=== PATIENT | female | born 1940 | race Hispanic/Latino ===

== ENCOUNTER 2017-02-08 09:46 | Emergency (ER) | payer MEDICAID ==
[~2017-02-08 09:46] MED LIST changes: -ASPI-1181 PO; -ASPI-555 PO; -ATOR40TA69 PO; -ATOR40TA71 PO
[2017-02-08 10:52] LABS: APPEARANCE,URINE Cloudy (CLEAR); BILIRUBIN,URINE Negative (NEGATIVE); COLOR,URINE Yellow (YELLOW); GLUCOSE, URINE (UA) Negative (NEGATIVE); KETONES,URINE Negative (NEGATIVE); LEUKOCYTE ESTERASE ,URINE Large (NEGATIVE); NITRATE,URINE Negative (NEGATIVE); OCCULT BLOOD,URINE Moderate (NEGATIVE); PROTEIN,URINE Negative (NEGATIVE); UROBILINOGEN,URINE 0.2 mg/dL (0.2-1.0)
[2017-02-08 10:58] LABS: RBC,URINE 0-1 /HPF (0-1); WBC,URINE TNTC /HPF (0-1)
[2017-02-08 10:59] LABS: BACTERIA,URINE Rare /HPF (None Seen); SQUAMOUS EPITHELIAL CELL,UR Rare /LPF (0-2)
[2017-02-08] MEDS ORDERED: LIDOCAINE HCL-MPF 1% 2ML VIAL ONE (11:41)
[2017-02-08] MEDS ORDERED: CEFTRIAXONE SODIUM 1 GM ONE (11:42)
[2017-02-08] MEDS ORDERED: PHENAZOPYRIDINE HCL 200 MG TABLET ONE (11:42)
[2017-02-25] MEDS ORDERED: ASPI-1181 PO (14:03)
[2017-02-25] MEDS ORDERED: ATOR40TA71 PO (14:03)
== END 2017-02-08 12:06 | disposition home or self-care (01) ==
LOC: EDH 09:46
DX: N39.0 Urinary tract infection, site not specified (principal); E78.5 Hyperlipidemia, unspecified; Z90.710 Acquired absence of both cervix and uterus
CPT/HCPCS: 81001; 87088; 87186; 93005; 96372; 99284; J0696; J3490

== ENCOUNTER → 2017-02-08 | Outpatient (CLI) | payer MEDICAID ==
[~2017-02-08] MED LIST: ACET1TAB12 PO; ASPI-1181 PO; ASPI-555 PO; ATOR40TA69 PO; ATOR40TA71 PO; NITR100C4 PO
== END | disposition home or self-care (01) ==
LOC: LAB 08:44
PROVIDERS: ATTEND Family Medicine
DX: E78.5 Hyperlipidemia, unspecified (principal)
CPT/HCPCS: 93005

== ENCOUNTER → 2017-02-18 | Outpatient (CLI) | payer MEDICAID ==
[~2017-02-18] MED LIST changes: +ASPI-1181 PO; +ASPI-555 PO; +ATOR40TA69 PO; +ATOR40TA71 PO
== END | disposition home or self-care (01) ==
LOC: SHCH 08:29
PROVIDERS: ATTEND Internal Medicine Cardiovascular Disease
DX: R09.89 Other specified symptoms and signs involving the circulatory and respiratory systems (principal)
CPT/HCPCS: 93880

== ENCOUNTER → 2017-02-19 | Outpatient (CLI) | payer MEDICAID | END | disposition home or self-care (01) | LOC: SHCH 13:42 | PROVIDERS: ATTEND Internal Medicine Cardiovascular Disease | DX: I34.8 Other nonrheumatic mitral valve disorders (principal) | CPT/HCPCS: 93306 ==

== ENCOUNTER 2017-02-26 06:43 | Day surgery (SDC) | payer MEDICAID ==
[2017-02-25 14:07] LABS: BASOPHILS % (AUTO) 0.7 % (0.0-5.0); EOSINOPHILS % (AUTO) 0.9 % (0.0-8.0); HEMATOCRIT 40.7 % (36-48); LYMPHOCYTES % (AUTO) 26.6 % (21.0-51.0); MEAN CORPUSCULAR HEMOGLOBIN 31.6 pg (27.0-33.0); MEAN CORPUSCULAR HGB CONC 33.8 g/dL (32.0-36.0); MEAN CORPUSCULAR VOLUME 93.4 fL (79-99); MONOCYTES % (AUTO) 4.7 % (3.0-13.0); NEUTROPHILS % (AUTO) 67.1 % (40.0-77.0); PLATELET COUNT (AUTO) 269 K/uL (130-400); RED BLOOD CELL COUNT(AUTO) 4.36 MIL/uL (4.00-5.50); RED CELL DISTRIBUTION WIDTH 12.1 % (11.0-15.5); WHITE BLOOD COUNT (AUTO) 6.4 K/uL (4.8-10.8)
[2017-02-25 14:19] VITALS: BP 138/68
[2017-02-25 14:25] LABS: CREATININE 0.7 mg/dL (0.5-1.5)
[2017-02-26] VITALS (16 sets, daily range): BP systolic 126–174; BP diastolic 66–82
[~2017-02-26] VITALS: Ht 170.2 cm; Wt 80.7 kg
[~2017-02-26 06:43] MED LIST changes: -ASPI-555 PO; -ATOR40TA69 PO; +CEFAZOLIN SODIUM 1 GM VIAL IVP SCH; +LACTATED RINGERS 1000ML 1,000 ML IV SCH
[2017-02-26] MEDS ORDERED: ASPI-555 PO (08:01)
[2017-02-26] MEDS ORDERED: ATOR40TA69 PO (08:01)
[2017-02-26] MEDS ORDERED: ROCURONIUM BROMIDE 10MG/1ML 5ML VL ONE ×2 (08:17→08:57)
[2017-02-26] MEDS ORDERED: LIDOCAINE PF 2% 5ML ABBOJECT ONE (08:17)
[2017-02-26] MEDS ORDERED: SUCCINYLCHOLINE 200MG/10ML SYR ONE (08:17)
[2017-02-26] MEDS ORDERED: PROPOFOL 10 MG/ML 20ML VIAL IV ONE ×2 (08:17→09:41)
[2017-02-26] MEDS ORDERED: ONDANSETRON HCL 4 MG/2 ML VIAL ONE (08:17)
[2017-02-26] MEDS ORDERED: MIDAZOLAM HCL 1 MG/ML 2ML VIAL ONE (08:17)
[2017-02-26] MEDS ORDERED: GLYCOPYRROLATE 0.2 MG/ML 5 ML VIAL ONE (08:17)
[2017-02-26] MEDS ORDERED: DEXAMETHASONE SOD PHOSPHATE 10MG/ML 1ML VIAL ONE (08:17)
[2017-02-26] MEDS ORDERED: FENTANYL CITRATE PF 50 MCG/1 ML 5ML AMP IV ONE (08:18)
[2017-02-26] MEDS ORDERED: NEOSTIGMINE 5MG/5ML SYR IV ONE (08:58)
[2017-02-26] MEDS ORDERED: NALOXONE HCL 0.4 MG/1 ML ML ONE (09:25)
== END 2017-02-26 11:55 | disposition home or self-care (01) ==
LOC: DAH 06:43 → SUH 06:43
PROVIDERS: ATTEND Obstetrics & Gynecology
DX: R30.0 Dysuria (principal); R10.2 Pelvic and perineal pain; E78.5 Hyperlipidemia, unspecified; M81.0 Age-related osteoporosis without current pathological fracture; Z90.710 Acquired absence of both cervix and uterus; Z87.440 Personal history of urinary (tract) infections
CPT/HCPCS: 36415; 57287; 80048; 85025; 86850; 86900; 86901; 88300; A4351; A4510; A4600; A4606; J0330; J1100; J2001; J2250; J2310; J2405; J2704 ×2; J2710; J3010; J3490 ×3; J7120

== ENCOUNTER → 2023-05-08 | Outpatient (CLI) | payer MEDICARE ==
[~2023-05-08] MED LIST changes: -ACET1TAB12 PO; -ASPI-1181 PO; +ASPI-1443 PO; +ASPI-556 PO; +ATOR40TA69 PO; -CEFAZOLIN SODIUM 1 GM VIAL IVP SCH; -LACTATED RINGERS 1000ML 1,000 ML IV SCH; -NITR100C4 PO
== END | disposition home or self-care (01) ==
LOC: RAH 09:14
PROVIDERS: ATTEND Family Medicine Adult Medicine
DX: Z12.31 Encounter for screening mammogram for malignant neoplasm of breast (principal); R92.323 Mammographic fibroglandular density, bilateral breasts
CPT/HCPCS: 77067

== ENCOUNTER → 2023-06-26 | Outpatient (CLI) | payer MEDICARE | END | disposition home or self-care (01) | LOC: RAH 10:00 | PROVIDERS: ATTEND Family Medicine Adult Medicine | DX: N64.4 Mastodynia (principal) ==

== ENCOUNTER 2023-07-15 07:32 | Day surgery (SDC) | payer MEDICARE ==
[2023-07-11 11:04] LABS: BASOPHILS # (AUTO) 0.04 K/uL (0.00-0.20); BASOPHILS % (AUTO) 0.6 % (0.0-5.0); EOSINOPHILS # (AUTO) 0.14 K/uL (0.00-0.70); HEMATOCRIT 44.3 % (36-48); IMMATURE GRANULOCYTE ABSOLUTE 0.01 K/uL (0-1); LYMPHOCYTES # (AUTO) 1.8 K/uL (1.0-4.8); LYMPHOCYTES % (AUTO) 25.7 % (21.0-51.0); MEAN CORPUSCULAR HEMOGLOBIN 31.6 pg (27.0-33.0); MEAN CORPUSCULAR HGB CONC 32.5 g/dL (32.0-36.0); MEAN CORPUSCULAR VOLUME 97.1 fL (79-99); MONOCYTES # (AUTO) 0.5 K/uL (0.1-1.0); MONOCYTES % (AUTO) 6.5 % (3.0-13.0); NEUTROPHILS # (AUTO) 4.6 K/uL (1.8-7.7); NEUTROPHILS % (AUTO) 65.1 % (40.0-77.0); PLATELET COUNT (AUTO) 223 K/uL (130-400); RED BLOOD CELL COUNT(AUTO) 4.56 MIL/uL (4.00-5.50); RED CELL DISTRIBUTION WIDTH 11.8 % (11.0-15.5); WHITE BLOOD COUNT (AUTO) 7.1 K/uL (4.8-10.8)
[2023-07-11 11:21] LABS: CREATININE 0.8 mg/dL (0.5-1.0); POTASSIUM 4.3 mmol/L (3.5-5.1)
[2023-07-11 11:38] VITALS: BP 146/77; PULSE 67; RESP 16
[~2023-07-15] VITALS: Ht 167.6 cm; Wt 83.9 kg
[2023-07-15] VITALS (14 sets, daily range): BP systolic 124–157; BP diastolic 56–94; PULSE 56–72; RESP 13–18
[~2023-07-15 07:32] MED LIST changes: -ASPI-1443 PO; -ATOR40TA71 PO; +CLOP75TA32 PO; +EZET10TA48 PO; +VALS160T29 PO; +VITAMIN B12 PO; +[UNRECOGNIZED DRUG - OTHER] PO
[2023-07-15] MEDS: CEFAZOLIN SODIUM 2 GM VIAL ONE (08:10)
[2023-07-15] MEDS: LACTATED RINGERS 1000ML 1,000 ML IV ONE (08:15)
[2023-07-15] MEDS ORDERED: FAMOTIDINE 20MG VIAL IV ONE (09:48)
[2023-07-15] MEDS ORDERED: ACETAMINOPHEN 1,000 MG/100 ML VIAL IV ONE (09:48)
[2023-07-15] MEDS ORDERED: PROPOFOL 10 MG/ML 20ML VIAL IV ONE (09:50)
[2023-07-15] MEDS ORDERED: ROCURONIUM BROMIDE 10MG/1ML 5ML VL ONE (09:50)
[2023-07-15] MEDS ORDERED: FENTANYL CITRATE PF 50 MCG/1 ML 2ML VIAL ONE (09:50)
[2023-07-15] MEDS ORDERED: LIDOCAINE PF 100MG/5ML (2%) SYRINGE 5ML ONE (09:50)
[2023-07-15] MEDS ORDERED: BUPIVACAINE/PF 0.25% 30ML VIAL IJ ONE (09:57)
[2023-07-15] MEDS ORDERED: ONDANSETRON 4MG INJ ONE (10:11)
[2023-07-15] MEDS ORDERED: DEXAMETHASONE SOD PHOSPHATE 10MG/ML 1ML VIAL ONE (10:11)
[2023-07-15] MEDS: CEFAZOLIN SODIUM 2 GM VIAL IVPB ONE (10:18)
[2023-07-15] MEDS ORDERED: PHENYLEPHRINE HCL 10 MG/ML 1ML VIAL IV ONE (10:32)
[2023-07-15] MEDS ORDERED: GLYCOPYRROLATE 0.2 MG/ML 5 ML VIAL ONE (10:37)
[2023-07-15] MEDS ORDERED: NEOSTIGMINE METHYLSULFATE 1MG/ML IV ONE (10:37)
[2023-07-15] MEDS ORDERED: SUGAMMADEX SODIUM 200 MG/2 ML VIAL IV ONE (10:56)
== END 2023-07-15 12:40 | disposition home or self-care (01) ==
LOC: DAH 07:32
PROVIDERS: ATTEND Surgery
DX: L72.0 Epidermal cyst (principal); I10 Essential (primary) hypertension; Z82.49 Family history of ischemic heart disease and other diseases of the circulatory system; Z83.3 Family history of diabetes mellitus; Z80.9 Family history of malignant neoplasm, unspecified; Z87.891 Personal history of nicotine dependence; Z79.82 Long term (current) use of aspirin; Z79.899 Other long term (current) drug therapy; Z98.49 Cataract extraction status, unspecified eye; Z90.710 Acquired absence of both cervix and uterus; Z98.890 Other specified postprocedural states
CPT/HCPCS: 93005; 80048; 85025; 36415; 11403; 88304; A6260; J0665 ×2; A4663; J7030; A4452; J7120; J3490 ×3; J3010; J1100; J2001; J2704; J2405; J2710; J2371; J0690 ×2; A4215; A4223; A4213; A4222; A4221

== ENCOUNTER 2024-09-17 09:53 | Day surgery (SDC) | payer OTHER, MEDICAID ==
[2024-09-15 13:30] VITALS: BP 129/54; PULSE 75; RESP 15; TEMP 97.2
[2024-09-15 13:30] LABS: IMMATURE GRANULOCYTE ABSOLUTE 0.01 K/uL (0-1); NUCLEATED RED BLOOD CELLS 0.0 % (0.0-0.19); PLATELET COUNT (AUTO) 240 K/uL (130-400); RED BLOOD CELL COUNT(AUTO) 4.47 MIL/uL (4.00-5.50); RED CELL DISTRIBUTION WIDTH 11.9 % (11.0-15.5); WHITE BLOOD COUNT (AUTO) 6.1 K/uL (4.8-10.8)
[2024-09-15 13:33] LABS: APPEARANCE,URINE CLEAR (CLEAR); GLUCOSE, URINE (UA) NEGATIVE (NEGATIVE); LEUKOCYTE ESTERASE ,URINE NEGATIVE Leu/uL (NEGATIVE); NITRATE,URINE NEGATIVE (NEGATIVE); OCCULT BLOOD,URINE NEGATIVE (NEGATIVE)
[2024-09-15 13:35] LABS: ADD UA MICROSCOPIC NO
[2024-09-15 13:37] LABS: CREATININE 0.7 mg/dL (0.5-1.0); GLOMERULAR FILTR. RATE CALC 86.0 mL/min (>90); GLUCOSE,RANDOM 95.0 mg/dL (70-105); SODIUM SERUM 145.0 mmol/L (136-145); UREA NITROGEN, BLOOD 14.0 mg/dL (7-18)
--- NOTE | 2024-09-15 13:45 | EKG ---
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
[2024-09-15 13:50] LABS: INR 1.02 (0.85-1.15)
--- NOTE | 2024-09-15 17:35 | HMCIMG ---
EXAM: CR CHEST, 1 VIEW CLINICAL HISTORY: 84-year-old female pre-op. COMPARISON: None provided TECHNIQUE: Single frontal radiograph of the chest was obtained. FINDINGS: Lines/Devices: None. Lungs: Radiographically clear. No consolidation or ground-glass opacities are observed. There is no pleural effusion. There is no pneumothorax. Mediastinum and cardiovascular structures: There are calcific atherosclerotic plaques in the aorta. The cardiac silhouette is not enlarged. The central airway and mediastinal contours are unremarkable. Bones and soft tissues: Unremarkable. IMPRESSION: 1. No acute cardiopulmonary pathology. 2. Atherosclerotic aorta. /[place]
[~2024-09-17] VITALS: Ht 167.6 cm; Wt 81.9 kg
[2024-09-17] VITALS (10 sets, daily range): BP systolic 101–144; BP diastolic 48–65; PULSE 55–77; RESP 14–18; TEMP 97.4–97.9
[~2024-09-17 09:53] MED LIST changes: +0.9%NACL 1000ML 1,000 ML IV SCH; +ACET-3859 PO; -ASPI-556 PO; +CILO100T3 PO; +GABA-529 PO; +OMEG100033 PO; +VITA-395 PO; -VITAMIN B12 PO; -[UNRECOGNIZED DRUG - OTHER] PO
[2024-09-17] MEDS ORDERED: LIDOCAINE HCL 400MG/20ML VIAL ONE (14:17)
[2024-09-17] MEDS ORDERED: IODIXANOL 320 MG/ML 100 ML VIAL ONE (14:17)
[2024-09-17] MEDS ORDERED: HEParin-NS 1,000 UNIT/500 ML 1,000 ML IV ONE (14:17)
[2024-09-17] MEDS ORDERED: MIDAZOLAM HCL 1 MG/ML 2ML VIAL ONE (14:35)
[2024-09-17] MEDS ORDERED: NITROGLYCERIN 50MG VIAL ONE (14:40)
[2024-09-17] MEDS ORDERED: DEXTROSE 50%-WATER 50 ML DISP.SYRIN IV PRN (16:30)
[2024-09-17] MEDS ORDERED: GLUCAGON 1MG KIT 1 MG ML IM PRN (16:30)
[2024-09-17] MEDS ORDERED: 0.9%NACL 1000ML 1,000 ML IV SCH (16:30)
--- NOTE | 2024-09-17 16:45 | PRN ---
Procedure:Peripheral Angiogram Procedure Note Procedure Note: Peripheral Angiogram Date/Time of Service: 09/17/2024 Referring Physician: Dr. Nunn Procedures Performed: Lower abdominal aortogram, peripheral angiogram with bilateral lower extremity arterial runoff Indications for Procedure: PAD, Willacy category three symptoms (L > R) Description of Procedure: [After informed consent was obtained the patient was prepped and draped in the usual sterile fashion a 6 Bulgarian arterial sheath with a hemostatic valve was inserted into the right common femoral artery using a modified Salinger technique on the first past front wall puncture. A 5 Bulgarian Omni Flush catheter was then advanced over a soft angled Glidewire into the abdominal aorta and a lower abdominal aortogram with runoff was obtained. The findings are listed below. The Omni flush catheter was then advanced to the left common femoral artery and a left lower extremity arteriogram was obtained. The findings are listed below.] Findings: Lower abdominal aorta: patent Right common iliac artery: 20% stenosis in the ostial segment of the artery Right external iliac artery: patent Right internal iliac artery: patent Right common femoral artery: patent Right profunda artery: patent Right superficial femoral artery: Diffuse 80% stenosis in the proximal segment of the artery. 100% stenosis (DIRECT CARE STAFFER = 40 mm) in the mid segment of the artery. The artery reconstitutes distally via collateral blood flow. There is diffuse 80% stenosis in the distal segment of the artery Right popliteal artery: patent Right anterior tibial artery: 90% stenosis in the proximal segment of the artery Right tibioperoneal artery: patent Right peroneal artery: patent Right posterior tibial artery: 100% stenosis (DIRECT CARE STAFFER > 200 mm) in the proximal segment of the artery. The artery reconstitutes distally near the ankle. Right pedal arch: Incomplete, with slow two-vessel runoff supplying the anterior and posterior segments of the right pedal arch. Left common iliac artery: 30% stenosis in the ostial segment of the artery Left external iliac artery: patent Left internal iliac artery: patent Left common femoral artery: patent Left profunda artery: patent Left superficial femoral artery: There is a stent present in the proximal segment of the artery. There was 30% ISR seen within the stent. There was 100% stenosis (DIRECT CARE STAFFER = 250 mm) in the mid segment of the artery. The DIRECT CARE STAFFER extends into the distal left popliteal artery Left popliteal artery: The artery reconstitutes in his distal segment via collateral blood flow. Left anterior tibial artery: 100% stenosis (DIRECT CARE STAFFER = 200 mm) in the proximal segment of the artery. The artery reconstitutes distally via collateral blood flow Left tibioperoneal artery: patent Left peroneal artery: patent Left posterior tibial artery: There was diffuse 90% stenosis in the proximal and mid segments of the artery. Left pedal arch: Incomplete, with slow two-vessel runoff supplying the anterior and posterior segments of the left pedal arch. Intervention: None Estimated Blood Loss: [20]mL Complications: [ None] Conclusion: 1. PAD, Darshan category 3 symptoms (L> R), 100% stenosis (DIRECT CARE STAFFER = 250 mm) in the mid left superficial femoral artery, 100% stenosis (DIRECT CARE STAFFER = 200 mm) in the proximal left anterior tibial artery, diffuse 90% stenosis in the proximal and mid left posterior tibial artery, 80% stenosis in the proximal right superficial femoral artery, 100% stenosis (DIRECT CARE STAFFER = 40 mm) in the mid right superficial femoral artery, 90% stenosis in the proximal right anterior tibial artery, 100% stenosis (DIRECT CARE STAFFER > 200 mm) in the proximal right posterior tibial artery 2. 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 Continue goal-directed medical therapy. 2. Continue cilostazol 100 mg BID and clopidogrel 75 mg daily. 3. Groin precautions 4. 4 hours of bedrest 5. Start NS at 100 mL/hour x3 hours. 6. Okay to DC, once bed restless complete in the right groin is soft, and free of bruising, bleeding, and or hematoma formation. 7. No driving for the next 48 hours. 8. No heavy lifting or strenuous exercise for the next two weeks. 9. We will refer the patient for treatment options, including left-sided femoral/popliteal bypass surgery as an outpatient. CHARLENE NUNN MD Sep 17, 2024 16:45
== END 2024-09-17 20:15 | disposition home or self-care (01) ==
LOC: DAH 09:53
PROVIDERS: ATTEND Internal Medicine Cardiovascular Disease
DX: I70.203 Unspecified atherosclerosis of native arteries of extremities, bilateral legs (principal); I70.92 Chronic total occlusion of artery of the extremities; I10 Essential (primary) hypertension; E78.5 Hyperlipidemia, unspecified; R01.1 Cardiac murmur, unspecified; Z79.82 Long term (current) use of aspirin; Z79.01 Long term (current) use of anticoagulants; Z79.899 Other long term (current) drug therapy
CPT/HCPCS: 80048; 83880; 85025; 85610; 85730; 81003; 36415; 71045; 93005; 75625; 36246; 75716; 99156; 99157 ×3; C1894 ×2; C1760; C1769; J3010; J3490 ×3; J0360; J2250; J1644; Q9967; A4215; A4222; A4221; A4663; A4216; A4606; A4223 ×3

== ENCOUNTER 2024-11-26 14:44 | Emergency (ER) | payer OTHER, MEDICAID ==
[~2024-11-26] VITALS: Ht 167.6 cm; Wt 81.2 kg
[~2024-11-26 14:44] MED LIST changes: -0.9%NACL 1000ML 1,000 ML IV SCH; -EZET10TA48 PO; +EZET10TA80 PO
--- NOTE | 2024-11-26 15:03 | ERN ---
General Chief Complaint: Lower Extremity Pain/Injury Stated Complaint: LEFT LEG EDEMA Time Seen by MD: 14:46 Source: patient History of Present Illness Initial Comments Patient is a 84-year-old female coming in to be evaluated for left leg pain. Per patient she was evaluated by arboriculture instructor and sent in for further imaging. Patient recently has a stent placed on the 8th facility outlet with a valley. Allergies: Coded Allergies: No Known Drug Allergies (Unverified Allergy, Unknown, 07/30/16) Home Meds Reported Medications Gabapentin (Gabapentin) 100 Mg Capsule, 300 MG PO PM, CAP 09/15/24 Acetaminophen (Acetaminophen) 325 Mg Tablet, 325 MG PO AD, TAB 09/15/24 Cilostazol (Cilostazol) 100 Mg Tablet, 100 MG PO BID, TAB 09/15/24 [place]-3/Dha/Epa/Fish Oil (Fish Oil 1,000 mg Softgel) 1,000 Mg (120 Mg-180 Mg) Capsule, 1000 MG PO AM, CAP 09/15/24 Vitamin E (Dl,Tocopheryl Acet) (Vitamin E) 180 Mg (400 Unit) Capsule, 180 MG PO AM, CAP 09/15/24 Clopidogrel Bisulfate (Clopidogrel) 75 Mg Tablet, 75 MG PO AM, TAB 07/11/23 Valsartan (Valsartan) 160 Mg Tablet, 160 MG PO HS, TAB 07/11/23 Ezetimibe (Ezetimibe) 10 Mg Tablet, 10 MG PO HS, TAB 07/11/23 Atorvastatin Calcium (LIPITOR) 40 Mg Tablet, 40 MG PO HS, TAB 02/26/17 Past Medical History Past Medical History: High Cholesterol, Heart Disease, Hypertension, Other Medical History Other: pad Past Surgical History: Other Surgical History Other: stent left lower leg ROS Dictation CONSTITUTIONAL: No chills, no fever, no weakness, no diaphoresis, no malaise. HEAD/FACE: No signs of trauma. EENT: No eye pain, no blurred vision, no tearing, no double vision, no ear pain, no ear discharge, no nose pain, no nasal congestion, no throat pain, no throat swelling, no mouth pain. RESPIRATORY: No cough, no orthopnea, no SOB, no stridor, no wheezing. CARDIOVASCULAR: No chest pain, no edema, no palpitations, no syncope. GASTROINTESTINAL/ABDOMINAL: No abdominal pain, no constipation, no diarrhea, no nausea, no vomiting. GENITOURINARY: No abnormal discharge, no dysuria, no frequent urination, no hematuria. No complaints of pain in the genitals. MUSCULOSKELETAL: No back pain, no gout, no joint pain, no joint swelling, no muscle pain, no muscle stiffness, no neck pain. INTEGUMENTARY: change in color, no change in hair/nails, no dryness, no lesion, no lumps, no rash. NEUROLOGICAL/PSYCH: No anxiety, not depressed, no emotional problem, no headache, no numbness, no pre-existing deficit, no history of seizures, no tremors, no weakness. HEMATOLOGIC/LYMPHATIC: Not anemic, no history of blood clots, no apparent bleeding, no bruising, glands not swollen. All Systems Negative, Except as Noted. Physical Exam Physical Exam Dictation VITAL SIGNS: Reviewed. GENERAL APPEARANCE: Alert, oriented x3, no acute distress, obese. HEAD AND FACE: Non-traumatic. EYES: PERRL, pink conjunctivas, eyelid no trauma, anterior chamber clear. EARS: Pinnas intact and no signs of trauma or erythema. Ear canals clear and no discharge. TMs no erythema. NOSE: No discharge, no bleeding. OROPHARYNX: Mouth normal, teeth no caries, tongue pink. Pharynx clear, no erythema. Tonsils no exudates, no abscesses noted. Mucous membrane moist. NECK: Supple, non-tender, no thyromegaly, no masses, no JVD, no bruits. BREAST: Deferred. CHEST: No tenderness, no crepitus, no paradoxical movement, no retractions. LUNGS: Clear, well-ventilated, symmetric, no rales, no wheezing, no rhonchi, no stridor, good breath sounds bilaterally. HEART: Regular rate, regular rhythm, no murmur, no gallops. VASCULAR: No peripheral edema. ABDOMEN: Soft, positive bowel sounds, nondistended, no guarding, nontender, no rebound, no masses no hepatomegaly, no splenomegaly, no Adan's sign, no hernias. RECTAL: Deferred. GENITAL: Deferred. NEUROLOGICAL: Normal speech, gross motor function intact, gross sensory function intact. MUSCULOSKELETAL: Neck nontender, full range of motion, back nontender, full range of motion. EXTREMITIES: Nontender, full range of motion. SKIN: Color pink, dry, no turgor, no rash, no lacerations, no abrasions, no contusions. LYMPHATICS: Deferred. Results Laboratory and Microbiology Lab and Micro Result Laboratory Tests Test 11/26/24 16:06 White Blood Count 7.1 K/uL (4.8-10.8) Red Blood Count 4.12 MIL/uL (4.00-5.50) Hemoglobin 12.8 g/dL (12.0-16.0) Hematocrit 40.9 % (36-48) Mean Corpuscular Volume 99.3 fL (79-99) H Mean Corpuscular Hemoglobin 31.1 pg (27.0-33.0) Mean Corpuscular Hemoglobin Concent 31.3 g/dL (32.0-36.0) L Red Cell Distribution Width 11.9 % (11.0-15.5) Platelet Count 257 K/uL (130-400) Mean Platelet Volume 9.4 fL (7.5-10.5) Immature Granulocyte % (Auto) 0.3 % (0-1) Neutrophils (%) (Auto) 70.4 % (40.0-77.0) Lymphocytes (%) (Auto) 20.1 % (21.0-51.0) L Monocytes (%) (Auto) 7.5 % (3.0-13.0) Eosinophils (%) (Auto) 1.4 % (0.0-8.0) Basophils (%) (Auto) 0.3 % (0.0-5.0) Neutrophils # (Auto) 5.0 K/uL (1.8-7.7) Lymphocytes # (Auto) 1.4 K/uL (1.0-4.8) Monocytes # (Auto) 0.5 K/uL (0.1-1.0) Eosinophils # (Auto) 0.10 K/uL (0.00-0.70) Basophils # (Auto) 0.02 K/uL (0.00-0.20) Absolute Immature Granulocyte (auto 0.02 K/uL (0-1) Nucleated Red Blood Cells 0.0 % (0.0-0.19) Sodium Level 145 mmol/L (136-145) Potassium Level 4.1 mmol/L (3.5-5.1) Chloride Level 104 mmol/L (101-111) Carbon Dioxide Level 33 mmol/L (21-32) H Blood Urea Nitrogen 26 mg/dL (7-18) H Creatinine 0.8 mg/dL (0.5-1.0) Glomerular Filtration Rate Calc 74 mL/min (>90) Random Glucose 124 mg/dL (70-105) H Total Calcium 9.3 mg/dL (8.5-10.1) Troponin I High Sensitivity 6 ng/L (4-50) Labs Reviewed?: Yes EKG/XRAY/US/CT/MRI EKG Comment 11/26/2024 time 15:53 vent rate 82 sinus rhythm pr [address] wave elevation or depression Ultrasound Comment venous us- negative dvt arterial us- arteriosclerosis MDM MDM: Differential diagnosis: Rationale: Tests considered and ordered secondary to shared decision making include: labs, ECG and radiology Previous outside records reviewed: Old ER visits. Risk of complication and/or morbidity or mortality of patient management: None Medications-Per medication reconciliation Need for hospitalization: Patient does meet criteria for hospitalization. Need for emergency major/minor surgery: No There are no social concerns with this patient. Prescription drug management Prescriptions will include symptomatic care Patient's prior external medical records from other ER visits were reviewed by me as indicated. Prior testing and results from previous visits were reviewed. Prior tests were taken into account with medical decision making and resource utilization, independent historian/historians were used to obtain complete medical history. I independently interpreted the test that were performed, results were reviewed by me and considered findings on radiology if ordered. Medical management and examination interpretation discussions were had by me with other qualified healthcare professionals as indicated for the patient's care. ED Course Orders Procedure Category Date Status Time Cbc With Differential LAB 11/26/24 Complete 15:03 Chest 1vw RAD 11/26/24 Taken 15:03 12 Lead Ekg Tracing- EKG 11/26/24 Resulted Technical 15:03 Troponin I High LAB 11/26/24 Complete Sensitivity 15:03 Urinalysis Profile LAB 11/26/24 Logged 15:03 Basic Metabolic Panel LAB 11/26/24 Complete 15:03 Us Venous Doppler US 11/26/24 Taken Unilateral 15:03 Us Arterial Unila Low US 11/26/24 Taken Ext Dupl 15:03 Acetaminophen 500mg PHA 11/26/24 In Process Tab (Tylenol 500mg T 18:30 Acetaminophen 500mg PHA 10/16/25 Complete Tab (Tylenol 500mg T 18:21 Current Medications Medications (Trade) Dose Ordered Sig/Kamlesh Route PRN Reason Start Time Stop Time Status Last Admin Dose Admin Acetaminophen (TYLenol 500MG TAB) 500 mg STK-MED ONCE .ROUTE 11/26/24 18:21 11/26/24 18:21 DC Acetaminophen (TYLenol 500MG TAB) 1,000 mg ONCE PO 11/26/24 18:30 11/26/24 22:30 11/26/24 18:29 Vital Signs Date Time Temp Pulse Resp B/P (MAP) Pulse Ox O2 Delivery O2 Flow Rate FiO2 11/26/24 18:40 98.2 77 15 127/77 98 Room Air* 0 21 11/26/24 18:30 98.1 11/26/24 14:53 98.1 83 16 133/54 96 Room Air* 0 21 11/26/24 14:46 98.1 83 16 133/54 96 Room Air 0 DX & DISP Disposition: Other(Comment) (Patient care transitioned to Dr. Gonzales) Departure Condition: Stable Referrals: WINSOME HERNNADEZ (PCP) RAMOS NICKERSON MD Nov 26, 2024 15:03
--- NOTE | 2024-11-26 15:58 | EKG ---
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
[2024-11-26 16:13] LABS: IMMATURE GRANULOCYTE ABSOLUTE 0.02 K/uL (0-1); NUCLEATED RED BLOOD CELLS 0.0 % (0.0-0.19); PLATELET COUNT (AUTO) 257 K/uL (130-400); RED BLOOD CELL COUNT(AUTO) 4.12 MIL/uL (4.00-5.50); RED CELL DISTRIBUTION WIDTH 11.9 % (11.0-15.5); WHITE BLOOD COUNT (AUTO) 7.1 K/uL (4.8-10.8)
[2024-11-26 16:20] LABS: CREATININE 0.8 mg/dL (0.5-1.0); GLOMERULAR FILTR. RATE CALC 74.0 mL/min (>90); GLUCOSE,RANDOM 124.0 mg/dL (70-105); SODIUM SERUM 145.0 mmol/L (136-145); UREA NITROGEN, BLOOD 26.0 mg/dL (7-18)
[2024-11-26 18:30] VITALS: TEMP 98.1
[2024-11-26] MEDS ORDERED: CEPH500B PO (20:42)
[2024-11-26 22:25] VITALS: BP 140/59; PULSE 75; RESP 16; TEMP 98.3; O2SAT 99
--- NOTE | 2024-11-27 12:48 | HMCIMG ---
CHEST 1VW REASON: cp COMPARISON: Prior chest radiograph from 09/15/2024 is available. FINDINGS: Single view of the chest was obtained. Lungs are clear. Heart size is normal. There is no pulmonary vascular congestion. Mediastinum and bony thorax appear unremarkable. IMPRESSION: 1. Unchanged from prior study with no acute cardiopulmonary process..
--- NOTE | 2024-11-27 12:53 | HMCIMG ---
US VENOUS DOPPLER UNILATERAL REASON: left lower extremity swelling COMPARISON: None Technique: Left venous doppler ultrasound was performed with spectral analysis and color flow imaging technique. FINDINGS: There is a normal appearance of the common femoral, deep femoral, the profunda femoris and popliteal veins. Proximal calf veins appear normal as well. There is normal response to compression and augmentation. There is no evidence of deep venous thrombosis. IMPRESSION: Normal left lower extremity venous Doppler ultrasound.
--- NOTE | 2024-11-27 13:18 | HMCIMG ---
US ARTERIAL UNILA LOW EXT DUPL HISTORY: left lower extremity swelling TECHNIQUE: Duplex Doppler evaluation of the arteries of left leg performed. FINDINGS: Grayscale images revealed intimal calcifications throughout the left lower extremity.. Peak systolic velocities and wave patterns were documented, as follows: LEFT LEG Common femoral: 244 cm/s biphasic. The right common femoral artery has 50-80% stenosis. Superficial femoral prox: 194 cm/s monophasic Superficial femoral mid: 179 cm/s monophasic Superficial femoral distal: 101 cm/s monophasic Popliteal: 141 cm/s monophasic Posterior tibial: 112 cm/s monophasic Dorsalis pedis: 192 cm/s monophasic The left posterior tibial artery as multiple level calcified plaque. IMPRESSION: 50-80% stenosis of the left common femoral artery. 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
== END 2024-11-26 22:32 | disposition home or self-care (01) ==
LOC: EDH 14:44
DX: I10 Essential (primary) hypertension (principal); E78.00 Pure hypercholesterolemia, unspecified; I73.9 Peripheral vascular disease, unspecified; Z79.899 Other long term (current) drug therapy
CPT/HCPCS: 99285; 96365; 93971; 93926; 71045; 82550; 84484; 80048; 83880; 85025; 36415; 93005; J0690